=== PATIENT | male | born 1990 | race Caucasian/White ===

== ENCOUNTER 2016-07-11 11:30 | Emergency (ER) | payer MEDICAID ==
[~2016-07-11] VITALS: Ht 172.7 cm; Wt 67.6 kg
[2016-07-11] MEDS ORDERED: ALBUTEROL/IPRATROPIUM 2.5MG/0.5MG, 3 ML NPPB ONE (12:30)
[2016-07-11] MEDS ORDERED: ALBUTEROL/IPRATROPIUM 2.5MG/0.5MG, 3 ML ONE (13:00)
[2016-07-11 13:29] VITALS: BP 125/63
== END 2016-07-11 13:49 | disposition home or self-care (01) ==
LOC: ED 12:55
DX: J20.9 Acute bronchitis, unspecified (principal); F17.200 Nicotine dependence, unspecified, uncomplicated
CPT/HCPCS: 71020; 94640; 99284; J7512; J7620

== ENCOUNTER 2019-11-03 21:39 | Emergency (ER) | payer MEDICAID ==
[~2019-11-03] VITALS: Ht 170.2 cm; Wt 73.0 kg
[2019-11-03 21:40] VITALS: BP 138/84
--- NOTE | 2019-11-03 21:47 | NUR ---
pt to ct
== END 2019-11-03 22:27 | disposition home or self-care (01) ==
LOC: ED 22:00
DX: S16.1XXA Strain of muscle, fascia and tendon at neck level, initial encounter (principal); S00.91XA Abrasion of unspecified part of head, initial encounter; V47.0XXA Car driver injured in collision with fixed or stationary object in nontraffic accident, initial encounter; W22.10XA Striking against or struck by unspecified automobile airbag, initial encounter; Y93.89 Activity, other specified; Y92.89 Other specified places as the place of occurrence of the external cause; Y99.8 Other external cause status
CPT/HCPCS: 72125; 99284